=== PATIENT | female | born 1960 | race Caucasian/White ===

== ENCOUNTER 2022-09-17 11:46 | Emergency (ER) | payer MEDICAID ==
[~2022-09-17] VITALS: Ht 170.2 cm; Wt 120.0 kg
[2022-09-17 14:09] LABS: CLARITY URINE CLEAR (CLEAR); COLOR URINE YELLOW (YELLOW); KETONES URINE NEGATIVE (NEGATIVE); LEUKOCYTE ESTERASE URINE TRACE (NEGATIVE); NITRITE URINE NEGATIVE (NEGATIVE); OCCULT BLOOD URINE NEGATIVE (NEGATIVE); PROTEIN URINE NEGATIVE (NEGATIVE); SPECIFIC GRAVITY URINE 1.004 (1.005-1.030); UROBILINOGEN URINE 0.2 E.U./dL (0.2-1.0)
[2022-09-17] MEDS ORDERED: IBUP-2028 MT (17:12)
[2022-09-17] MEDS ORDERED: ACET-2708 MT (17:12)
[2022-09-17 17:22] VITALS: BP 127/88
== END 2022-09-17 17:23 | disposition home or self-care (01) ==
LOC: ER 14:25
DX: R10.2 Pelvic and perineal pain (principal); M54.9 Dorsalgia, unspecified; E11.9 Type 2 diabetes mellitus without complications; I10 Essential (primary) hypertension
CPT/HCPCS: 81003; 87210; 99283; 99284